=== PATIENT | male | born 1980 | race Caucasian/White ===

== ENCOUNTER 2023-02-25 18:28 | Outpatient (REF) | payer OTHER, SELFPAY ==
[2023-02-25 20:47] LABS: Abs Immature Grans 0.03 10^3/uL (0.0-0.06); Absolute Basophil Count 0.06 10^3/uL (0.0-0.2); Absolute Eosinophil Count 0.13 10^3/uL (0.0-0.7); Absolute Lymphocyte Count 1.65 10^3/uL (1.2-3.4); Absolute Monocyte Count 0.59 10^3/uL (0.1-0.8); Absolute Neutrophil Count 3.49 10^3/uL (1.2-6.7); Eosinophils % 2.2; HCT 48.7 % (40.0-50.0); HGB 16.8 g/dL (13.5-17.5); Immature Grans % 0.5; Lymphocytes % 27.7; MCH 29.7 pg (27.0-33.0); MCHC 34.5 % (32.0-36.0); MCV 86 fL (80-95); MPV 11.8 fL (8.0-11.0); Monocytes % 9.9; Neutrophils % 58.7; Platelet Count 189 10^3/uL (130-400); RBC 5.65 10^6/uL (4.36-5.78); RDW 12.7 % (11.8-14.1); RDW-SD 39.8 fL; WBC 5.95 10^3/uL (4.4-10.8)
[2023-02-25 21:11] LABS: ALT 29 U/L (16-63); AST 27 U/L (15-37); Albumin 4.1 g/dL (3.4-5.0); Alkaline Phosphatase 58 U/L (46-116); Anion Gap 9.9 mmol/L (3-11); BUN 9 mg/dL (7-18); Bilirubin, Total 0.5 mg/dL (0.2-1.0); CO2 28.1 mmol/L (21.0-32.0); CREATININE 1.1 mg/dL (0.70-1.30); Calcium 9.4 mg/dL (8.5-10.1); Chloride 103 mmol/L (98-107); Estimated GFR 85.95 (mL/min/1.73m2); Glucose 94 mg/dL (74-106); Potassium 4.4 mmol/L (3.5-5.1); Sodium 141 mmol/L (136-145); TSH (W/Ref FT4) 1.19 uIU/mL (0.36-3.74); Total Protein 7.8 g/dL (6.4-8.2)
== END 2023-02-25 18:29 | disposition home or self-care (01) ==
LOC: LBN 18:28
PROVIDERS: Visit Provider Physician Assistant Medical
DX: I10 Essential (primary) hypertension (principal)
CPT/HCPCS: 80053; 84443; 85025

== ENCOUNTER 2023-05-15 19:21 | Outpatient (REF) | payer BC, SELFPAY ==
[2023-05-15 21:41] LABS: Anion Gap 10.3 mmol/L (3-11); BUN 11 mg/dL (7-18); CO2 27.7 mmol/L (21.0-32.0); CREATININE 1.1 mg/dL (0.70-1.30); Calcium 9.3 mg/dL (8.5-10.1); Calculated LDL 116 mg/dL (<100); Chloride 104 mmol/L (98-107); Cholesterol 222 mg/dL (<200); Estimated GFR 85.95 (mL/min/1.73m2); Glucose 116 mg/dL (74-106); HDL Cholesterol 55 mg/dL (40-60); Potassium 4.1 mmol/L (3.5-5.1); Sodium 142 mmol/L (136-145); Triglyceride 258 mg/dL (<150)
== END 2023-05-15 19:22 | disposition home or self-care (01) ==
LOC: NCHCN 19:21
PROVIDERS: Visit Provider Family Medicine
DX: I10 Essential (primary) hypertension (principal); Z13.220 Encounter for screening for lipoid disorders
CPT/HCPCS: 80048; 80061

== ENCOUNTER 2023-07-22 15:47 | Outpatient (REF) | payer BC, SELFPAY ==
[2023-07-22 14:54] LABS: Anion Gap 9.1 mmol/L (3-11); BUN 10 mg/dL (7-18); CO2 27.9 mmol/L (21.0-32.0); CREATININE 1.1 mg/dL (0.70-1.30); Calcium 9.6 mg/dL (8.5-10.1); Chloride 103 mmol/L (98-107); Estimated GFR 85.95 (mL/min/1.73m2); Glucose 124 mg/dL (74-106); Magnesium 2.2 mg/dL (1.8-2.4); Potassium 4.4 mmol/L (3.5-5.1); Sodium 140 mmol/L (136-145)
== END 2023-07-22 15:48 | disposition home or self-care (01) ==
LOC: NCHCN 15:47
PROVIDERS: Visit Provider Family Medicine
DX: I10 Essential (primary) hypertension (principal); M79.18 Myalgia, other site
CPT/HCPCS: 80048; 83735

== ENCOUNTER 2024-08-18 21:04 | Outpatient (REF) | payer OTHER, SELFPAY ==
[2024-08-18 16:38] LABS: Anion Gap 7.7 mmol/L (3-11); BUN 8 mg/dL (7-18); CO2 29.3 mmol/L (21.0-32.0); CREATININE 1.2 mg/dL (0.70-1.30); Calcium 9.2 mg/dL (8.5-10.1); Chloride 108 mmol/L (98-107); Estimated GFR 76.95 (mL/min/1.73m2); Glucose 102 mg/dL (74-106); Potassium 5.1 mmol/L (3.5-5.1); Sodium 145 mmol/L (136-145)
== END 2024-08-18 21:05 | disposition home or self-care (01) ==
LOC: NCHCN 21:04
PROVIDERS: Visit Provider Family Medicine
DX: I10 Essential (primary) hypertension (principal)
CPT/HCPCS: 80048